=== PATIENT | female | born 2005 | race Asian ===

== ENCOUNTER 2024-06-01 14:59 | Outpatient (CLI) | payer OTHER, SELFPAY ==
[2024-06-01 15:47] LABS: Basophils Absolute Auto 0.01 K/uL (0.00-0.30); Basophils Percent Auto 0.2 % (0.0-3.0); Eosinophils Absolute Auto 0.07 K/uL (0.00-0.50); Eosinophils Percent Auto 1.1 % (0.0-7.0); Hematocrit 41.4 % (33.0-51.0); Hemoglobin* 12.8 gm/dL (12.0-16.0); Immature Granulocytes Abs Auto 0.01 K/uL (0.00-0.30); Immature Granulocytes Pct Auto 0.2 %; Lymphocytes Absolute Auto 2.18 K/uL (0.90-2.90); Lymphocytes Percent Auto 34.5 % (20-44); Mean Corpuscular HGB Conc 31 gm/dL (32-36); Mean Corpuscular Hemoglobin 26 pg (26-34); Mean Corpuscular Volume 84 fL (80-100); Monocytes Percent Auto 8.5 % (0.0-11.0); Neutrophils Absolute Auto 3.51 K/uL (1.7-7.0); Neutrophils Percent Auto 55.5 % (42.0-72.0); Platelet Count* 263 K/uL (140-440); RDW Coefficient of Variation % 15.2 % (11.5-15.5); Red Blood Count 4.94 m/uL (4.00-5.20); Slide Review Reflex No; White Blood Count* 6.32 K/uL (4.50-11.00)
[2024-06-01 16:20] LABS: Chloride* 103 mmol/L (96-114); Sodium* 136 mmol/L (135-149)
[2024-06-01 16:21] LABS: Potassium* 4.7 mmol/L (3.6-5.1)
[2024-06-01 16:23] LABS: Creatinine* 0.7 mg/dL (0.6-1.2); Estimated Glomerular Filt Rate 128 ml/min
[2024-06-01 16:24] LABS: Anion Gap 7 mEq/L (7-15); Blood Urea Nitrogen* 12 mg/dL (5-24); Calcium* 9.5 mg/dL (8.7-10.8); Carbon Dioxide* 26 mmol/L (20-32); Glucose* 90 mg/dL (60-115)
[2024-06-01 16:43] LABS: Vitamin D 25 Hydroxy* 77 ng/mL (30-80)
[2024-06-01 16:59] LABS: Ferritin* 9.5 ng/mL (6.24-137.0)
[2024-06-01 17:13] LABS: Vitamin B12* 738 pg/mL (243-894)
[2024-06-05 17:37] LABS: QuantiFERON NIL 0.04 IU/mL; Quantiferon Plus TB1 minus NIL 0.91 IU/mL (<=0.34); Quantiferon TB Gold Plus Positive (Negative)
== END 2024-06-01 15:00 | disposition home or self-care (01) ==
PROVIDERS: Visit Provider Nurse Practitioner
DX: Z11.1 Encounter for screening for respiratory tuberculosis (principal); E55.9 Vitamin D deficiency, unspecified; R53.83 Other fatigue; E61.1 Iron deficiency
CPT/HCPCS: 36415; 80048; 82306; 82607; 82728; 84443; 85025; 86480

== ENCOUNTER 2024-06-08 14:31 | Outpatient (CLI) | payer OTHER, SELFPAY ==
--- NOTE | 2024-06-08 14:00 | CRLHL7_ITS ---
For Patients: As a result of the Cures Act, medical imaging exams and procedure reports are released immediately into your electronic medical record. You may view this report before your referring provider. If you have questions, please contact your health care provider. INDICATION: Positive quantiferon TECHNIQUE: Chest radiograph 2 views COMPARISON: None FINDINGS: Mediastinum: The mediastinum is normal in appearance. The heart silhouette is normal in size and morphology. Lung: Both lungs are unremarkable in appearance. No sign of pleural effusion seen. No pneumothorax is identified. Bone and Soft tissue: Unremarkable for age. IMPRESSION: 1. No acute cardiopulmonary disease is seen. Dictated by: Quinton Salcido MD @ 06/08/2024 18:06:43 (Electronically Signed)
== END 2024-06-08 14:32 | disposition home or self-care (01) ==
LOC: RAD 14:33
PROVIDERS: Visit Provider Nurse Practitioner
DX: R76.12 Nonspecific reaction to cell mediated immunity measurement of gamma interferon antigen response without active tuberculosis (principal); Z11.1 Encounter for screening for respiratory tuberculosis
CPT/HCPCS: 71046